=== PATIENT | male | born 2000 | race African-American/Black ===

== ENCOUNTER 2023-08-16 12:50 | Emergency (ER) | payer OTHER, SELFPAY ==
[2023-08-16] VITALS (26 sets, daily range): BP systolic 101–150; BP diastolic 36–135; PULSE 82–186; RESP 15–38; TEMP 36.9; O2SAT 96–100
--- NOTE | 2023-08-16 12:45 | DI.CT_ITS ---
Exam(s) CT HEAD CERVICAL SPINE WO EXAM: CT HEAD CERVICAL SPINE WO CLINICAL HISTORY: Seizure, fall. TECHNIQUE: Imaging Protocol: Axial computed tomography images with coronal and sagittal reformatted images were created and reviewed COMPARISON: No exams were available for comparison FINDINGS: CT Head: Ventricles and Extra axial spaces: Normal in size and morphology for the patient's age. Hemorrhage: None. Cerebral parenchyma: Normal. Midline shift: None. Brainstem/Cerebellum: Normal. Calvarium: Normal. Visualized Paranasal sinuses/Mastoids: Clear. Soft Tissues: Unremarkable. CT Cervical Spine: Bones: No acute fracture or subluxation. There is reversal of the normal cervical lordosis. Soft Tissues: Unremarkable. Lung Apices: Clear. IMPRESSION: 1. No acute intracranial process. 2. No acute fracture or subluxation in the cervical spine. RADIATION DOSE DELIVERED: Total DLP DATA REPOSITORY: All CT scans at this facility are submitted to the National Radiology Data Registry (NRDR) Dose Index Registry (DIR) with the [employer] ([employer]). RADIATION OPTIMIZATION: All CT scans at this facility use at least one of these dose optimization te chniques: automated exposure control; mA and/or kV adjustment per patient size (includes targeted exa ms where dose is matched to clinical indication); or iterative reconstruction.
[2023-08-16] MEDS: LORazepam 2 MG/ML VIAL 1 MG IVP ×2 (13:09→13:22)
[2023-08-16] MEDS: levETIRAcetam 1,000 MG in Normal Saline 100 ML 400 MG IVPB (13:09)
[2023-08-16 13:13] LABS: Lactate 6.3 mmol/L (0.6-1.4)
[2023-08-16] MEDS: Normal Saline 1,000 ML 1000 ML IV (13:15)
[2023-08-16 13:16] LABS: Abs Immature Grans 0.03 10^3/uL (0.0-0.06); Absolute Basophil Count 0.02 10^3/uL (0.0-0.2); Absolute Lymphocyte Count 0.98 10^3/uL (1.2-3.4); Absolute Monocyte Count 0.35 10^3/uL (0.1-0.8); Absolute Neutrophil Count 6.88 10^3/uL (1.2-6.7); Basophils % 0.2; HCT 41.6 % (40.0-50.0); HGB 13.6 g/dL (13.5-17.5); Immature Grans % 0.4; Lymphocytes % 11.9; MCH 23.1 pg (27.0-33.0); MCHC 32.7 % (32.0-36.0); MCV 71 fL (80-95); MPV 10.4 fL (8.0-11.0); Monocytes % 4.2; Neutrophils % 83.3; Platelet Count 241 10^3/uL (130-400); RDW 13.7 % (11.8-14.1); RDW-SD 34.4 fL; WBC 8.26 10^3/uL (4.4-10.8)
[2023-08-16 13:45] LABS: ALT 22 U/L (16-63); AST 15 U/L (15-37); Alkaline Phosphatase 87 U/L (46-116); Anion Gap 13.2 mmol/L (3-11); BUN 12 mg/dL (7-18); Bilirubin, Total 0.5 mg/dL (0.2-1.0); CO2 19.8 mmol/L (21.0-32.0); CREATININE 1.3 mg/dL (0.70-1.30); Calcium 9.9 mg/dL (8.5-10.1); Chloride 102 mmol/L (98-107); Estimated GFR 79.16 (mL/min/1.73m2); Glucose 104 mg/dL (74-106); Magnesium 2.1 mg/dL (1.8-2.4); Potassium 3.6 mmol/L (3.5-5.1); Sodium 135 mmol/L (136-145); TSH (W/Ref FT4) 1.91 uIU/mL (0.36-3.74); Total Protein 8.4 g/dL (6.4-8.2)
[2023-08-16 14:01] LABS: Diff Comment Diff Reviewed; Microcytosis 2+
[2023-08-16 15:00] LABS: COVID-19 PCR Negative (Negative); Influenza A PCR Negative (Negative); Influenza B PCR Negative (Negative); RSV PCR Negative (Negative); Source Nasopharynx
--- NOTE | 2023-08-16 15:55 | DI.VRAD_ITS ---
PROCEDURE INFORMATION: Exam: CT Head Without Contrast Exam date and time: 08/16/2023 3:02 PM Age: 23 years old Clinical indication: Seizure, fall TECHNIQUE: Imaging protocol: Computed tomography of the head without contrast. COMPARISON: No relevant prior studies available. FINDINGS: Brain: No evidence for acute transcortical infarct. No mass effect or midline shift. No extra-axial collection. No acute intracranial hemorrhage. Basal cisterns are patent. Cerebral ventricles: No ventriculomegaly. Paranasal sinuses: Visualized sinuses are unremarkable. No fluid levels. Mastoid air cells: Visualized mastoid air cells are well aerated. Bones/joints: Unremarkable. No acute fracture. Soft tissues: Unremarkable. IMPRESSION: No acute intracranial hemorrhage, or mass effect. PROCEDURE INFORMATION: Exam: CT Cervical Spine Without Contrast Exam date and time: 08/16/2023 3:02 PM Age: 23 years old Clinical indication: Seizure, fall TECHNIQUE: Imaging protocol: Computed tomography of the cervical spine without contrast. COMPARISON: No relevant prior studies available. FINDINGS: Bones/joints: No acute fracture or traumatic subluxation. No spondylolisthesis. The atlantooccipital and atlantoaxial articulations are intact. Occipital condyles are intact. Facet joint alignments are maintained. Prevertebral and retropharyngeal spaces: No prevertebral soft tissue swelling. Lungs: Lung apices are normal. Soft tissues: Unremarkable. IMPRESSION: No acute fracture or traumatic subluxation. Dictated and Authenticated by: Santosh Florez MD. Ordering:REYNA Meyer MD
--- NOTE | 2023-08-16 16:04 | ED.GENADUL_ITS ---
Discharge Plan Disposition Patient Disposition: [facility] Discharge Details Clinical Impression: Seizure disorder ED Provider: Mitch Renae Home Meds and New Rx's Prescriptions: Continued levetiracetam [Keppra] 500 mg tablet 500 mg PO DAILY levetiracetam [Keppra] 1,000 mg tablet 1,000 mg PO HS Discharge Instructions Instructions: Recurrent Seizures in Adults (ED) Additional Instructions: It is very important that patient takes his seizure medication as prescribed to prevent seizures. Continue to monitor patient and have patient return for any new or significant worsening of symptoms otherwise if patient is taking medications and continues to have breakthrough seizures patient should follow-up with neurologist for medication adjustment. Medical Decision Making Patient presenting [facility] the [facility] department [facility] due [facility]. Patient has been refusing to take his seizure medications over the past couple days and today had a minor witnessed seizure but then had a second 1 which caused patient to fall and strike his head. Patient was able to pick himself up but now complains of headache and right shoulder pain. Patient agitated and restless not answering many questions but is compliant to physical exam. No obvious findings were noted but exam somewhat limited by patient's agitation. Majority of information received from facility nursing staff. Was informed that patient takes Keppra 500 in the morning and thousand at night. We will plan on checking patient's labs, CT imaging of the head and neck along with right shoulder imaging and will give Ativan for added agitation and 1 g IV Keppra given that patient has not been taking his medications. Pending results patient did have small witnessed seizure by nursing staff that only lasted about 60 seconds and was generalized without focal symptoms. Patient given another milligram of Ativan pending results. Patient has significantly elevated lactate which I do feel is consistent with actual seizure, review of CBC is overall nondiagnostic, CMP does show low carbon dioxide, slightly elevated anion gap, otherwise again nondiagnostic labs, TSH is within normal range, patient negative for COVID flu RSV. Patient refused radiological imaging of the shoulder when he got over to radiology department and Head and cervical spine showed no acute findings. I feel that patient's seizure today was directly related to him not taking his medication. Further spoke with patient after he calm down and he stated that he was wrongly prosecuted and he is refusing to take his medication. Patient was informed that it is very important that he takes his medication and him choosing to do this will not change any previous legal interactions he has had. I do feel that patient can be discharged to follow-up as needed and I suspect as long as he is taking his medications he will not have any further seizures. Staff was informed to have patient return for any new or worsening of condition. After discussion of diagnosis and plan of care patient has no further needs, questions, or concerns and states clear understanding to return to the emergency department for any worsening symptoms. This documentation was generated using [employer]avor[employer] system, please disregard any oddities of phrase or misspellings. HPI General Mode of arrival: EMS . Date/Time Provider Initiated Documentation: 08/16/23 12:53 . Information obtained by: police, RN/MD and RN notes reviewed . History of Pres ent Illness 23 year old M presents to the emergency department with the chief complaint of Seizure, right shoulder pain, described as similar to prior episodes, Patient started experiencing this day(s) and it has been intermittent. No relieving factors improve symptom(s), Medication worsens symptoms (Patient refusing to take medications) . Patient notes no other symptoms.. Patient did receive the following treatments prior to arrival, none Related Data Home Medications Medication Instructions Recorded Confirmed levetiracetam 1,000 mg tablet 1,000 mg PO HS 08/16/23 08/16/23 (Keppra) levetiracetam 500 mg tablet 500 mg PO DAILY 08/16/23 08/16/23 (Keppra) General Stated Complaint: Seizure REYNALDO: 3 Review of Systems Constitutional Constitutional: Denies chills, Denies fever(s), Reports headache(s) and Reports malaise Eyes Eyes: Denies change in vision ENT Ears, Nose, Mouth, and Throat: Reports headache(s) Gastrointestinal Gastrointestinal: Denies nausea and Denies vomiting Musculoskeletal Musculoskeletal: Reports as per HPI, Denies joint swelling and Denies limited range of motion Neurologic Neurologic: Reports headache(s) and Reports convulsions PFSH All Active Problems (Updated 08/16/23 @ 16:14 by Mitch Renae NP) Seizure disorder (Chronic) Seizure disorder (Chronic) Social History Smoking risk assessment performed?: No Details: Pt does not answer Housing: other Exam Const General: cooperative, healthy appearing, no acute distress, well groomed and other (Restless and agitated) Orientation: alert, awake and oriented x3 HENMT Head: normal to inspection Ears: hearing grossly normal bilaterally and TM's normal bilaterally Mouth: oral mucosae normal and moist mucous membranes Throat: posterior oropharynx normal Eyes Visual Irene: normal visual irene by confrontation Alignment and Position: alignment normal Periorbital: periorbital findings normal Eyelids: eyelids normal Sclera: sclerae normal Pupils: PERRL EOM: EOM intact bilaterally Neck Neck: normal visual inspection, full ROM and no meningeal signs Resp Effort & Inspection: normal respiratory effort and able to speak in complete sentences Auscultation: clear to auscultation bilaterally Cardio Rate: regular rate Rhythm: regular rhythm Heart Sounds: S1 normal and S2 normal Neuro General: patient alert, patient awake, patient oriented x3, tone normal, moves all extremities and CN's II-XI intact bilaterally Cognition: normal cognition Motor: muscle tone normal throughout, strength 5/5 throughout, no pronator drift, no movement abnormalities noted and no fasciculations Sensory Exam: no sensory deficits noted Coordination: Does not sway with eyes open Course Vital Signs Vital signs: Vital Signs Temperature 36.9 C 08/16/23 12:47 Pulse 102 H 08/16/23 12:47 Respiratory Rate 20 08/16/23 12:47 Blood Pressure 150/135 H 08/16/23 12:47 Pulse Oximetry 96 08/16/23 12:47 Temperature 36.9 C 08/16/23 12:47 Pulse 112 H 08/16/23 15:01 Pulse 111 H 08/16/23 15:01 Respiratory Rate 25 H 08/16/23 15:01 Respiratory Effort Normal, Non-Labored 08/16/23 13:43 Respiratory Depth Normal 08/16/23 13:43 Respiratory Pattern Normal 08/16/23 13:43 Blood Pressure 113/72 08/16/23 15:01 Blood Pressure Mean 83 08/16/23 15:01 Blood Pressure Position Supine 08/16/23 12:47 Pulse Oximetry 100 08/16/23 15:00 Oxygen Delivery Method Room Air 08/16/23 12:47 Oxygen Flow Rate 0 08/16/23 12:47 Pain Level 8 08/16/23 12:47 Lab/Test Results Lab/Test Results: Laboratory Tests Range/Units 11/26/23 11/26/23 12:59 14:07 WBC (4.4-10.8) 10^3/uL 8.26 RBC (4.36-5.78) 10^6/uL 5.90 H Hgb (13.5-17.5) g/dL 13.6 Hct (40.0-50.0) % 41.6 MCV (80-95) fL 71 L MCH (27.0-33.0) pg 23.1 L MCHC (32.0-36.0) % 32.7 RDW (11.8-14.1) % 13.7 Plt Count (130-400) 10^3/uL 241 MPV (8.0-11.0) fL 10.4 Immature Gran % 0.4 Neutrophils % 83.3 Lymphocytes % 11.9 Monocytes % 4.2 Eosinophils % 0.0 Basophils % 0.2 Nucleated RBC % (0.0-0.3) % 0.0 Absolute Neutrophils (1.2-6.7) 10^3/uL 6.88 H Absolute Lymphocytes (1.2-3.4) 10^3/uL 0.98 L Absolute Monocytes (0.1-0.8) 10^3/uL 0.35 Absolute Eosinophils (0.0-0.7) 10^3/uL 0.00 Absolute Basophils (0.0-0.2) 10^3/uL 0.02 RBC Morphology See Below Microcytosis 2+ VBG Lactate (0.6-1.4) mmol/L 6.3 H* Sodium (136-145) mmol/L 135 L Potassium (3.5-5.1) mmol/L 3.6 Chloride (98-107) mmol/L 102 Carbon Dioxide (21.0-32.0) mmol/L 19.8 L Anion Gap (3-11) mmol/L 13.2 H BUN (7-18) mg/dL 12 Creatinine (0.70-1.30) mg/dL 1.3 Est GFR (CKD-EPI 2020) (mL/min/1.73m2) 79.16 Glucose (74-106) mg/dL 104 Calcium (8.5-10.1) mg/dL 9.9 Magnesium (1.8-2.4) mg/dL 2.1 Total Bilirubin (0.2-1.0) mg/dL 0.5 AST (15-37) U/L 15 ALT (16-63) U/L 22 Alkaline Phosphatase (46-116) U/L 87 Total Protein (6.4-8.2) g/dL 8.4 H Albumin (3.4-5.0) g/dL 4.0 TSH (0.36-3.74) uIU/mL 1.91 COVID-19 Source Nasopharynx SARS-CoV-2 (PCR) (Negative) Negative Influenza Type A (PCR) (Negative) Negative Influenza Type B (PCR) (Negative) Negative RSV (PCR) (Negative) Negative
--- NOTE | 2023-08-16 16:18 | NUR.NOTE ---
Nursing Note: Pt refused shoulder xray OFFICE C[facility] [place] aware
== END 2023-08-16 16:37 ==
LOC: ER 16:49
PROVIDERS: Emergency Provider Nurse Practitioner Family
DX: G40.909 Epilepsy, unspecified, not intractable, without status epilepticus (principal); R51.9 Headache, unspecified; T42.6X6A Underdosing of other antiepileptic and sedative-hypnotic drugs, initial encounter; Z91.128 Patient's intentional underdosing of medication regimen for other reason; Y92.143 Cell of prison as the place of occurrence of the external cause; Z20.822 Contact with and (suspected) exposure to COVID-19
CPT/HCPCS: 80053; 82550; 87637; 96361; 96365; 96375; 99284; 70450; 72125; 81003; 83605; 83735; 84443; 85025; J1953; J2060